=== PATIENT | female | born 1965 | race Caucasian/White ===

== ENCOUNTER 2023-12-27 07:12 | Emergency (ER) | payer MEDICAID ==
[~2023-12-27] VITALS: Ht 180.3 cm; Wt 94.8 kg
[2023-12-27 07:20] VITALS: BP 156/101; PULSE 93; RESP 18; TEMP 98.7; O2SAT 99
[2023-12-27] MEDS ORDERED: CARB15DR61 OT (08:50)
[2023-12-27 09:05] VITALS: BP 135/74; PULSE 87; RESP 18; TEMP 98.7; O2SAT 99
== END 2023-12-27 09:05 | disposition home or self-care (01) ==
LOC: MED 07:12
DX: H61.22 Impacted cerumen, left ear (principal); Z79.899 Other long term (current) drug therapy
CPT/HCPCS: 99282